=== PATIENT | female | born 1955 | race Caucasian/White ===

== ENCOUNTER → 2018-02-23 15:16 | Outpatient (CLI) | payer BC, SELFPAY ==
--- NOTE | 2018-02-23 15:28 | XR_ITS ---
XR shoulder LT min 2V HISTORY: ITS.REASON: LEFT SHOULDER PAIN ORDERING PHYSICIAN: Luca Mckeon MD PATIENT AGE: 62 years COMPARISON: None FINDINGS: No fracture or dislocation. No lytic or blastic change. There is normal mineralization. The joint spaces are well-preserved. No significant degenerative/arthritic changes. No erosive changes evident. IMPRESSION: Negative, no acute finding
== END ==
PROVIDERS: PCP Family Medicine; Visit Provider Family Medicine
DX: M25.512 Pain in left shoulder (principal)
CPT/HCPCS: 73030